=== PATIENT | male | born 1995 ===

== ENCOUNTER 2021-03-24 12:44 | Emergency (ER) | payer MEDICAID, OTHER ==
[~2021-03-24] VITALS: Ht 172.7 cm; Wt 63.5 kg
[2021-03-24 12:51] VITALS: BP 136/80
== END 2021-03-24 15:24 | disposition home or self-care (01) ==
LOC: ER 12:44
DX: S86.912A Strain of unspecified muscle(s) and tendon(s) at lower leg level, left leg, initial encounter (principal); X50.1XXA Overexertion from prolonged static or awkward postures, initial encounter; Y93.89 Activity, other specified; Y92.89 Other specified places as the place of occurrence of the external cause; Y99.8 Other external cause status
CPT/HCPCS: 73562; 99283; J7030